=== PATIENT | female | born 1995 | race American Indian/Alaskan Native ===

== ENCOUNTER → 2023-01-11 16:06 | Outpatient (CLI) | payer OTHER, SELFPAY ==
[2023-01-11 16:26] LABS: Hematocrit 28.2 % (36-46); Hemoglobin 9.4 g/dL (12.0-16.0); Mean Corpuscular HGB Conc 33.3 % (30-36); Mean Corpuscular Hemoglobin 26.1 PG (26-34); Mean Corpuscular Volume 78.4 fL (80-100); Platelet Count 304 X10^3/uL (150-400); Red Cell Distribution Width 16.3 % (11.6-14.8); White Blood Cell Count 9.7 X10^3/uL (4.5-11.0)
== END ==
PROVIDERS: Referring Provider Student in an Organized Health Care Education/Training Program; Visit Provider Student in an Organized Health Care Education/Training Program
DX: O99.013 Anemia complicating pregnancy, third trimester (principal)
CPT/HCPCS: 85027

== ENCOUNTER → 2023-01-17 13:22 | Outpatient (CLI) | payer OTHER, SELFPAY ==
[2023-01-18 11:26] LABS: Strep Grp B PCR POS for Grp B Strep
== END ==
PROVIDERS: Visit Provider Student in an Organized Health Care Education/Training Program
DX: Z34.83 Encounter for supervision of other normal pregnancy, third trimester (principal)
CPT/HCPCS: 87653

== ENCOUNTER 2023-02-06 05:42 | Inpatient (IN) | payer OTHER, SELFPAY ==
[2023-02-06] VITALS (8 sets, daily range): BP systolic 107–115; BP diastolic 56–74; PULSE 77–93; RESP 11–17; TEMP 36.2–37.1; O2SAT 97–99
[2023-02-06 06:40] LABS: Basophils Absolute Auto 0 /uL (0-100); Basophils Percent Auto 0.5 % (0-2); Eosinophils Absolute Auto 100 /uL (0-450); Eosinophils Percent Auto 0.6 % (2-4); Hematocrit 30.1 % (36-46); Hemoglobin 10.1 g/dL (12.0-16.0); Lymphocytes Absolute Auto 2300 /uL (1100-4500); Lymphocytes Percent Auto 25.2 % (25-40); Mean Corpuscular HGB Conc 33.4 % (30-36); Mean Corpuscular Hemoglobin 27.2 PG (26-34); Mean Corpuscular Volume 81.6 fL (80-100); Monocytes Absolute Auto 700 /uL (0-900); Monocytes Percent Auto 8.2 % (3-14); Neutrophils Absolute Auto 6000 /uL (1500-7000); Neutrophils Percent Auto 65.5 % (50-75); Platelet Count 238 X10^3/uL (150-400); Red Blood Cell Count 3.69 X10^6/uL (4.0-5.2); Red Cell Distribution Width 25.9 % (11.6-14.8); White Blood Cell Count 9.2 X10^3/uL (4.5-11.0)
[2023-02-06 06:42] LABS: Add Manual Diff / Slide Review SLIDE REVIEW
[2023-02-06 07:15] LABS: Anisocytosis 2+; Microcytosis 1+
--- NOTE | 2023-02-06 07:28 | P.HPOB_ITS ---
OB HPI Date/Time Date of admission: 02/06/23 Date Patient Seen: 02/06/23 Time Patient Seen: 07:28 History of Present Condition Chief complaint: Primary : 4 Para: 2 Estimated Date of Delivery: 02/12/23 Estimated Gestational Age (weeks): 39+1 Narrative: Isabela Vila is a 27 year old female at 39+1wks here for planned primary due to hx of shoulder dystocia. History of Present care: good care Dating criteria: LMP confirmed by 1st trimester US Ultrasounds: normal 1st trimester US and normal mid trimester US Obstetrical complications: none Medical complications: none Narrative: OB Problem List Late transfer, records from previous [facility] requested urgently--> received and reviewed JAW Severe shoulder dystocia 2nd delivery (30-60sec, resolved with Natacha/posterior arm), would like to discuss planned C/S--> scheduled for 02/06 History of macrosomia (both 9+ lb without GDM) Michael Anemia--> H/H 9.4/28.2; s/p iron infusions 10.1/30.1 on admission GBS positive Preadmission Labs Blood type: O (+) positive -: Antibody screen: negative, Cystic fibrosis screen: negative, GBS status: negative, HBsAG: negative, HIV: negative, HSV 1: unknown, HSV 2: unknown and RPR/VDLR: negative -: Chlamydia screen: not detected and Gonorrhea screen: not detected -: Rubella: immune and Varicella: immune HCT: 28.6 HCAB: negative PAP: Normal Cell-free DNA: low risk, XY 1 hr GTT: 82 Evaluation Evaluation Baseline heart rate: 130 Variability: Moderate (11-25) monitor accelerations: Present Monitor Decelerations: Absent Contraction Frequency (minutes): 0 Category of Tracing: Reactive PFSH Medical History Shoulder dystocia during labor and delivery Surgical History No pertinent past surgical history Family History (Updated 02/01/23 @ 14:51 by Luciana Hill) Mother Al's thyroiditis Grandmother Hypertension Grandfather Heart disease Stroke Grandfather Esophageal cancer Grandmother Liver failure Alcoholism Sister Seizure in pediatric patient Social History marital status: number of children: 3 household members: spouse and children lives independently: Yes caregiver/support person: Yes housing: house pets and animals: Yes (1 dog) education level: college occupational status: unemployed current occupational exposures/hazards: No special elayne needs: No travel history: recent seatbelt use: always helmet use: No water heater temp set < 120 deg: Yes working smoke detector in home: Yes fire extinguisher in home: Yes carbon monox detector in home: Yes firearms in home: No do you feel safe at home: Yes Smoking Status: Never smoker second hand exposure: No alcohol intake: former substance use type: does not use during the past year weight has: remained stable well-balanced diet: about half the time daily servings fruits/ve-4 caffeine: Yes (~1 cup coffee/day) Type(s) of exercise: walking Meds Home Medications and Allergies Home Medications Medication Instructions Recorded Confirmed Type ascorbic acid (vitamin C) 500 mg 250 mg PO DAILY 01/09/23 02/06/23 History tablet ferrous sulfate 140 mg (45 mg 140 mg PO DAILY 01/09/23 02/06/23 History iron) tablet,extended release Allergies Allergy/AdvReac Type Severity Reaction Status Date / Time No Known Drug Allergies Allergy Verified 02/06/23 06:39 Review of Systems Review of Systems ROS: Yes All systems reviewed with the patient and are negative except as otherwise documented OB Exam Vital signs Blood Pressure: 107/68 Pulse Rate: 93 Temperature: 98.8 F HENMT Head: normal to inspection Resp Effort & Inspection: normal respiratory effort and able to speak in complete sentences Cardio Rate: regular rate Rhythm: regular rhythm Extremities Lower extremity: Yes normal to inspection GI Other: gravid, nontender, nondistended Objective Labs 02/06/23 06:16 Labs: Laboratory Results - last 24 hr 02/06/23 06:16 WBC 9.2 RBC 3.69 L Hgb 10.1 L Hct 30.1 L MCV 81.6 MCH 27.2 MCHC 33.4 RDW 25.9 H Plt Count 238 Neut % (Auto) 65.5 Lymph % (Auto) 25.2 [place] % (Auto) 8.2 Eos % (Auto) 0.6 L Baso % (Auto) 0.5 Neut # (Auto) 6000 Lymph # (Auto) 2300 [place] # (Auto) 700 Eos # (Auto) 100 Baso # (Auto) 0 RBC Morphology See below Anisocytosis 2+ H Microcytosis 1+ H Assessment and Plan Assessment and Plan Assessment and Plan narrative: 27yo at 39+1wks admitted for planned primary . -CBC, T&S on admission -NST on admission -plan for neuraxial anesthesia -GBS pos, covered by preop Ancef -PPH risk low -VTE risk low, SCDs for ppx -move to OR for delivery once all teams ready counseling: It was explained to the patient that a section is a surgery to deliver the baby through an incision in the abdominal wall and uterus.? All procedures can be associated with risk and unforeseen complications, which can be immediate or delayed.? Risks and complications of section include, but are not limited to:? infection of the uterus, pelvic organs, or skin; inadvertent injury to internal organs such as the bowel, bladder, or possibly even the baby; blood loss, transfusion, and/or life-threatening hemorrhage requiring hysterectomy; blood clots in the legs, pelvic organs, or lungs; adverse reaction to medications or anesthesia during surgery; development of placenta accreta spectrum in a subsequent ; and increased risk of section in a subsequent . Time Spent with Patient Total time spent with greater than 50% in coordination of care (as documented) at patient's floor/unit and/or counseling patient:: less than 15 minutes
[2023-02-06] MEDS: CITRIC ACID/SODIUM CITRATE 15 ML SOLUTION 30 ML PO (07:43)
[2023-02-06] MEDS: CEFAZOLIN 2 GM/100 ML PREMIX 100 ML IV (07:50)
--- NOTE | 2023-02-06 08:20 | SUR.OPER ---
Supine on padded OR bed, head on pillow, arms secured on padded arm boards at <90 degrees abduction, legs uncrossed, safety belt at thigh, tape over blanket over lower legs.
--- NOTE | 2023-02-06 09:02 | PM.OBCS.1 ---
Operative Date/Time/Diagnoses Date of procedure: 02/06/23 Time of procedure: 08:00 Pre-op diagnosis: 1. Johnson intrauterine gestation at 39+1 weeks 2. History of shoulder dystocia 3. Anemia of Post-op diagnosis: same ( hemorrhage by QBL) Procedure & Clinicians Procedure: Primary low transverse section Same procedure as scheduled: Yes Indications: 27yo at 39+1 weeks EGA admitted for planned primary due to history of shoulder dystocia. Surgeon: Isabela Schumacher Station Master: Nestor Galvan Anesthesia Type: Spinal Operative Notes Findings: Normal-appearing uterus and bilateral fallopian tubes and ovaries. Clear fluid noted with AROM. Delivery productive of a viable male in cephalic presentation with APGARS 8/9 and weighing 3868g. Closure Type: primary Specimen(s): cord blood Intraoperative meds administered: Duramorph and Ketorolac Applied: Catheter Estimated Blood Loss (mL): 900 (1000cc by QBL) Blood products transfused: none Procedure in detail: The risks, benefits, indications and alternatives of the procedure were reviewed with the patient and informed consent was obtained. The patient was taken to the operating room where spinal anesthesia was obtained without difficulty and was found to be adequate. She was then prepped and draped in the normal, sterile fashion in the dorsal supine position with a leftward tilt. A Pfannenstiel skin incision was then made with the scalpel and carried through to the underlying layer of fascia. The fascia was incised in the midline and the incision extended laterally with the Dawkins scissors. The superior aspect of the incision was grasped, tented up with Mahogany clamps and the rectus muscles were dissected off bluntly, aided with Dawkins scissors. The rectus muscles were then at the midline. The peritoneum was identified, and entered digitally. The peritoneal incision was then extended horizontally, superiorly and inferiorly, with good visualization of the bladder. The bladder blade was then inserted. The lower uterine segment was incised in a transverse fashion with the scalpel. The uterine incision was then extended manually in a cephalad/caudad direction. The amniotic sac was artificially ruptured, productive of clear fluid. The bladder blade was then removed. The ?s head delivered atraumatically through the hysterotomy without difficulty, followed by the body.? The cord was doubly clamped and cut after a 60sec delay with the infant handed off to the waiting pediatrics team. The placenta was then removed spontaneously with gentle traction on the umbilical cord. The uterus was then left in-situ and cleared of all clots and debris. Arterial bleeding was noted at the right side of the hysterotomy, which was clamped with Ring forceps. The uterine incision was repaired with 0-vicryl in a running, locked fashion. A figure of eight suture was placed along the hysterotomy, with excellent hemostasis achieved. ? The paracolic gutters were cleared of all clot and debris. The fascia was reapproximated with 0-vicryl in a running fashion. The subcutaneous layer was closed with 3-0 vicryl in simple, interrupted sutures. The skin was closed with 4-0 monocryl in a subcuticular fashion. The incision was then dressed with steri-strips and a pressure dressing was applied. At the completion of the case, a Crede maneuver was performed with good uterine tone and minimal vaginal bleeding noted.? The patient tolerated the procedure well. Sponge, lap and needle counts were correct x3. The patient was taken to the recovery room in stable condition. Complications: other ( hemorrhage due to intraoperative bleeding) Post-operative Condition: stable Disposition: PACU Aftercare: routine postop
[2023-02-06 12:33] LABS: Hematocrit 27.5 % (36-46); Hemoglobin 8.9 g/dL (12.0-16.0)
[2023-02-06] MEDS: KETOROLAC 30 MG/ML VIAL IV ×2 (14:43→20:39)
[2023-02-06] MEDS: diphenhydrAMINE 50 MG/ML VIAL 25 MG IV (14:44)
[2023-02-06] MEDS: ACETAMINOPHEN 325 MG TABLET 650 MG PO (20:39)
[2023-02-07] MEDS: KETOROLAC 30 MG/ML VIAL IV (02:32)
[2023-02-07] MEDS: ACETAMINOPHEN 325 MG TABLET 650 MG PO ×3 (02:33→15:44)
[2023-02-07] MEDS: PRENATAL VIT,CALC/IRON/FOLIC 1 TABLET 1 TAB PO (08:48)
[2023-02-07] MEDS: FERROUS SULFATE 325 MG TABLET PO (08:48)
[2023-02-07] MEDS: IBUPROFEN 600 MG TABLET PO ×2 (08:49→15:43)
[2023-02-07] MEDS: DOCUSATE 100 MG CAPSULE PO (08:49)
--- NOTE | 2023-02-07 14:59 | PM.OBDS.1 ---
Discharge Providers Provider Date of admission: 02/06/23 05:42 Discharge Date: 02/07/23 Primary care physician: Janeth Vigil PA-C Consults: 02/06/23 09:29 Consult to Hiv Cts Specialist Routine Comment: Discharge provider: Radha Alex DO Summary Hospital Course Date Patient Seen: 02/07/23 Time Patient Seen: 14:00 Diagnoses: care, section Anemia, expected post operative Hospital Course: 27yo admitted on 02/06/23 at 39.1w for scheduled primary section due to history of shoulder dystocia. See uncomplicated operative report for procedures. She is recovering appropriately. Appropriate lochia. Ambulating. Voiding. Tolerating regular diet. going well. Post operative hgb 8.9 (9.4). She had received iron infusions antepartum for anemia. IV iron given POD#1. POD#1 she continued to feel well and would like to go home. Reviewed and postoperative care, all questions answered. Peripartum Data Infant Delivery Method: Section Procedures: Primary section complications: none Discharge Diagnosis (1) care following delivery: Start Date: 02/06/23 Status: Acute (2) Acute postoperative anemia due to expected blood loss: Start Date: 02/06/23 Status: Acute (3) History of shoulder dystocia in prior , currently in third trimester: Start Date: 02/06/23 Status: Acute Status at Discharge Cognitive/behavioral status at discharge: oriented and calm Functional status at discharge: independent ambulation Time Spent with Patient Time attestation: Total time spent providing and/or coordinating discharge services: Time spent: Greater than 30 minutes Specific discharge activities: Increase activity as tolerated, pelvic rest, may shower, keep incision clean and dry Objective Labs 02/06/23 11:58 Exam Vital Signs (past 8 hours): Oxygen Delivery Method Room Air Const General: cooperative, healthy appearing and comfortable Orientation: alert, awake and oriented x3 Resp Effort & Inspection: normal respiratory effort Cardio Rate: regular rate GI Other: Soft, appropriately tender, incision c/d/i Skin General: no rashes or lesions noted Neuro General: patient alert, patient awake and patient oriented x3 Extrem General: normal to inspection Psych Appearance: grossly normal Discharge Plan Discharge Plan Patient Disposition: Home Discharge orders & Medications Prescriptions: New acetaminophen 325 mg Tablet 650 mg PO Q6H MDD 3g PRN (Reason: fever or pain) Qty: 90 1RF docusate sodium 100 mg Capsule 100 mg PO DAILY PRN (Reason: constipation) Qty: 30 1RF ibuprofen 600 mg Tablet 600 mg PO Q6H PRN (Reason: fever or pain) Qty: 90 1RF oxycodone 5 mg Tablet 5 mg PO Q6H PRN (Reason: Pain, Moderate (4-6)) Qty: 10 0RF Prenatabs Rx 29 mg iron- 1 mg Tablet 1 tab PO DAILY Qty: 90 1RF Discontinued ferrous sulfate 140 mg (45 mg iron) tablet extended release 140 mg PO DAILY ascorbic acid (vitamin C) 500 mg tablet 250 mg PO DAILY Patient Comments: with iron Medication counseling provided by Pharmacist: No Follow up/Referrals: Radha Alex DO [Physician] - 1 Week (Follow up 1-2w with ) Janeth Vigil PA-C [Primary Care Provider] - Activity Restrictions/Additional Instructions: Pelvic rest until bleeding stop, ~6w May shower No lifting greater 20lbs Diet/Activity/Treatments Diet: Regular Diet comment: Regular Activity: Increase activity as tolerated, pelvic rest Skin/Wound/Dressing Care Report to your healthcare provider any signs of infection, such as:: chills, fever, night sweats, increased pain, unusual drainage and unusual redness Dressing: Dressing removed, steri strips in place Visit Report/Discharge Packet Stand Alone Forms: Patient Portal/API Discharge Data Primary Care Provider: Janeth Vigil
[2023-02-07] MEDS: IRON SUCROSE 200 MG in SODIUM CHLORIDE 0.9% 100 ML 220 MG IV (16:00)
[2023-02-07] MEDS: MEASLES,MUMPS,RUBELLA VACC/PF 0.5 ML VIAL SUBCUT (16:46)
== END 2023-02-07 17:58 | disposition home or self-care (01) | DRG 787 ==
PROVIDERS: Admitting Provider Student in an Organized Health Care Education/Training Program; PCP Physician Assistant; Referring Provider Student in an Organized Health Care Education/Training Program; Visit Provider Student in an Organized Health Care Education/Training Program
PROC: 10D00Z1 Extraction of Products of Conception, Low, Open Approach (ICD-10-PCS; CPT 59514; principal; 2023-02-06 07:45)
DX: O34.211 Maternal care for low transverse scar from previous cesarean delivery (principal); D62 Acute posthemorrhagic anemia; Z3A.39 39 weeks gestation of pregnancy; Z37.0 Single live birth; O90.81 Anemia of the puerperium; O99.824 Streptococcus B carrier state complicating childbirth
CPT/HCPCS: 36415; 59050; 59514; 59515; 85014; 85018; 85025; 86850; 86900; 86901; J0690; J1100; J1200; J1756; J1885; J2274; J2405

== ENCOUNTER 2023-03-17 16:07 | Emergency (ER) | payer OTHER, SELFPAY ==
[2023-03-17] VITALS (16 sets, daily range): BP systolic 102–140; BP diastolic 58–75; PULSE 46–82; RESP 15–24; TEMP 36.2–36.9; O2SAT 92–99; BMI 29.7
--- NOTE | 2023-03-17 16:28 | DI.RAD.S_ITS ---
PROCEDURE: XR CHEST 1V INDICATIONS: Chest pain TECHNIQUE: One view of the chest was acquired. COMPARISON: None. FINDINGS: Surgical changes and devices: None. Lungs and pleura: Lungs are clear. No pleural effusions or pneumothorax. Mediastinum: Mediastinal contours appear normal. Heart size is normal. Bones and chest wall: No suspicious bony lesions. Overlying soft tissues appear unremarkable. IMPRESSION: No acute cardiopulmonary abnormality is seen. Dictated by: Laron Bassett M.D. on 03/17/2023 at 16:04 Approved by: Laron Bassett M.D. on 03/17/2023 at 16:04
--- NOTE | 2023-03-17 16:44 | ED.CHESTPAIN ---
HPI - Chest Pain General Chief Complaint: Chest Pain Stated Complaint: C-sec02/06/chest pain/chills/V/back pain/ Time Seen by Provider: 03/17/23 16:26 Source: patient Mode of arrival: Ambulatory Limitations: no limitations History of Present Illness HPI narrative: Patient is a 27-year-old female. Approximately 3 weeks ago had a . Is . Over the past 4-5 days she is developed occasional episodes of right-sided mid back discomfort. There has been periods of time where she is not had any symptoms. Subjective fevers at home. No nausea or vomiting. No urinary symptoms. No vaginal bleeding. Has not tried anything for her symptoms prior to arrival. Related Data Previous Rx's Medication Instructions Recorded acetaminophen 325 mg tablet 650 mg (2 x 325 mg) PO Q6H PRN 02/07/23 fever or pain #90 tabs docusate sodium 100 mg capsule 100 mg PO DAILY PRN constipation 02/07/23 #30 caps ibuprofen 600 mg tablet 600 mg PO Q6H PRN fever or pain 02/07/23 #90 tabs oxycodone 5 mg tablet 5 mg PO Q6H PRN Pain, Moderate 02/07/23 (4-6) #10 tabs oxycodone 5 mg tablet 5 mg PO Q6H PRN pain #12 tabs 02/07/23 vitamin 1 tab PO DAILY #90 tabs 02/07/23 no.76-iron,carbonyl 29 mg iron-folic acid 1 mg tablet (Prenatabs Rx) Allergies Allergy/AdvReac Type Severity Reaction Status Date / Time No Known Drug Allergies Allergy Verified 03/17/23 16:19 Review of Systems Constitutional Constitutional: Reports system reviewed and no additional complaints, except as documented Cardiovascular Cardiovascular: Reports system reviewed and no additional complaints, except as documented Respiratory Respiratory: Reports system reviewed and no additional complaints, except as documented Gastrointestinal Gastrointestinal: Reports system reviewed and no additional complaints, except as documented Integumentary/Breasts Skin/Breast: Reports system reviewed and no additional complaints, except as documented Neurologic Neurologic: Reports system reviewed and no additional complaints, except as documented Hematologic/Lymphatic On Anticoagulants: No Patient History Medical History Anemia affecting in third trimester (~2016) Encounter for supervision of other normal , third trimester Shoulder dystocia during labor and delivery Surgical History No pertinent past surgical history Family History (Updated 02/01/23 @ 14:51 by Luciana Hill) Mother Al's thyroiditis Grandmother Hypertension Grandfather Heart disease Stroke Grandfather Esophageal cancer Grandmother Liver failure Alcoholism Sister Seizure in pediatric patient Social History marital status: number of children: 3 household members: spouse and children lives independently: Yes caregiver/support person: Yes housing: house pets and animals: Yes (1 dog) education level: college occupational status: unemployed current occupational exposures/hazards: No special elayne needs: No travel history: recent seatbelt use: always helmet use: No water heater temp set < 120 deg: Yes working smoke detector in home: Yes fire extinguisher in home: Yes carbon monox detector in home: Yes firearms in home: No do you feel safe at home: Yes Smoking Status: Never smoker second hand exposure: No alcohol intake: former substance use type: does not use during the past year weight has: remained stable well-balanced diet: about half the time daily servings fruits/ve-4 caffeine: Yes (~1 cup coffee/day) Type(s) of exercise: walking Smoking Status: Never smoker Substance Use Type: does not use Exam Initial Vital Signs Initial Vital Signs: Vital Signs Temperature 97.1 F L 03/17/23 16:19 Pulse Rate 82 03/17/23 16:19 Respiratory Rate 18 03/17/23 16:19 Blood Pressure 125/58 L 03/17/23 16:19 Pulse Oximetry 98 03/17/23 16:19 Oxygen Delivery Method Room Air 03/17/23 16:19 HENMT Head: normal to inspection and normocephalic Resp Effort & Inspection: normal respiratory effort Auscultation: clear to auscultation bilaterally Cardio Rate: regular rate Rhythm: regular rhythm GI Inspection: normal to inspection and non-distended Palpation: soft, No firm and No tender Back/Spine/Pelvis Back: CVA tenderness Skin General: no rashes or lesions noted Neuro General: patient alert, patient awake and moves all extremities Extrem General: capillary refill normal Course Orders Ordered: ED Orders 03/17/23 16:27 Urinalysis and Microscopic Stat 03/17/23 16:28 XR chest 1V Stat 03/17/23 16:33 Complete Blood Count AUTO DIFF Stat Comprehensive Metabolic Panel Stat Lipase Stat Test Serum,Qual Stat 03/17/23 16:41 EKG-12 Lead Stat 03/17/23 17:18 US abdomen limited Stat Discontinued Medications Sodium Chloride (Normal Saline 0.9%) 1,000 mls @ 1,000 mls/hr IV BOLUS ONE Stop: 03/17/23 17:26 Last Infusion: 03/17/23 17:49 Dose: Infused Documented By: Admin: 03/17/23 16:49 Dose: 1,000 mls/hr Documented By: MEGAN Ondansetron HCl (Ondansetron 4 Mg/2 Ml Inj) 4 mg IV NOW ONE Stop: 03/17/23 16:28 Last Admin: 03/17/23 16:49 Dose: 4 mg Documented By: MEGAN Vital Signs Vital signs: Vital Signs - 8 hr 03/17/23 16:19 Temperature 97.1 F L Pulse Rate 82 Respiratory Rate 18 Blood Pressure 125/58 L Pulse Oximetry 98 Oxygen Delivery Method Room Air MDM - Chest Pain Lab Data Attestation: I reviewed the patient's lab results. 03/17/23 16:33 03/17/23 16:33 Labs: Lab Results 03/17/23 Range/Units 16:33 WBC 17.6 H (4.5-11.0) X10^3/uL RBC 4.51 (4.0-5.2) X10^6/uL Hgb 12.4 (12.0-16.0) g/dL Hct 37.4 (36-46) % MCV 82.9 (80-100) fL MCH 27.5 (26-34) PG MCHC 33.2 (30-36) % RDW 21.4 H (11.6-14.8) % Plt Count 337 (150-400) X10^3/uL Neut % (Auto) 81.0 H (50-75) % Lymph % (Auto) 13.5 L (25-40) % [place] % (Auto) 4.6 (3-14) % Eos % (Auto) 0.6 L (2-4) % Baso % (Auto) 0.3 (0-2) % Neut # (Auto) 03629 H (3131-3753) /uL Lymph # (Auto) 2400 (8185-4894) /uL [place] # (Auto) 800 (0-900) /uL Eos # (Auto) 100 (0-450) /uL Baso # (Auto) 0 (0-100) /uL RBC Morphology See below Anisocytosis 1+ H Sodium 138 (137-145) mmol/L Potassium 4.1 (3.4-5.1) mmol/L Chloride 102 (98-107) mmol/L Carbon Dioxide 28 (22-32) mmol/L BUN 14 (7-17) mg/dL Creatinine 0.58 (0.52-1.04) mg/dL Estimated GFR > 60 (>60) mL/min BUN/Creatinine Ratio 24.1 H (6-22) Glucose 94 (70-100) mg/dL Calcium 9.7 (8.4-10.2) mg/dL Total Bilirubin 0.7 (0.2-1.3) mg/dL AST 109 H (14-36) IU/L ALT 52 H (<35) IU/L Alkaline Phosphatase 203 H (38-126) U/L Total Protein 7.7 (6.3-8.2) g/dL Albumin 4.4 (3.5-5.0) g/dL Globulin 3.3 (1.7-4.1) g/dL Albumin/Globulin Ratio 1.3 (1.0-2.8) Lipase 71 (23-300) U/L Serum , Qual Negative (Negative) MDM Narrative Medical decision making narrative: Patient has midline and paraspinal thoracolumbar tenderness. Somewhat worse with palpation specifically on the right. Afebrile. No abdominal tenderness. She does have a leukocytosis. Elevation in her LFTs. Considered epidural hematoma/abscess. UTI, pyelo, plan will be to start with the right upper quadrant ultrasound to evaluate for gallbladder pathology. Care turned over to Dr. Schroeder to follow-up and disposition. Discharge Plan Departure Prescriptions: No Action oxycodone 5 mg tablet 5 mg PO Q6H PRN (Reason: pain) Qty: 12 0RF acetaminophen 325 mg Tablet 650 mg PO Q6H MDD 3g PRN (Reason: fever or pain) Qty: 90 1RF docusate sodium 100 mg Capsule 100 mg PO DAILY PRN (Reason: constipation) Qty: 30 1RF ibuprofen 600 mg Tablet 600 mg PO Q6H PRN (Reason: fever or pain) Qty: 90 1RF oxycodone 5 mg Tablet 5 mg PO Q6H PRN (Reason: Pain, Moderate (4-6)) Qty: 10 0RF Prenatabs Rx 29 mg iron- 1 mg Tablet 1 tab PO DAILY Qty: 90 1RF Referrals: Janeth Vigil PA-C [Primary Care Provider] -
[2023-03-17 16:48] LABS: Add Manual Diff / Slide Review NO; Basophils Absolute Auto 0 /uL (0-100); Basophils Percent Auto 0.3 % (0-2); Eosinophils Absolute Auto 100 /uL (0-450); Eosinophils Percent Auto 0.6 % (2-4); Hematocrit 37.4 % (36-46); Hemoglobin 12.4 g/dL (12.0-16.0); Lymphocytes Absolute Auto 2400 /uL (1100-4500); Lymphocytes Percent Auto 13.5 % (25-40); Mean Corpuscular HGB Conc 33.2 % (30-36); Mean Corpuscular Hemoglobin 27.5 PG (26-34); Mean Corpuscular Volume 82.9 fL (80-100); Monocytes Absolute Auto 800 /uL (0-900); Monocytes Percent Auto 4.6 % (3-14); Neutrophils Absolute Auto 14300 /uL (1500-7000); Platelet Count 337 X10^3/uL (150-400); Red Blood Cell Count 4.51 X10^6/uL (4.0-5.2); Red Cell Distribution Width 21.4 % (11.6-14.8); White Blood Cell Count 17.6 X10^3/uL (4.5-11.0)
[2023-03-17] MEDS: ONDANSETRON 4 MG/2 ML INJ IV (16:49)
[2023-03-17] MEDS: SODIUM CHLORIDE 0.9% 1,000 ML 1000 ML IV (16:49)
[2023-03-17 16:54] LABS: Alanine Aminotransferase 52 IU/L (<35); Albumin 4.4 g/dL (3.5-5.0); Albumin Globulin Ratio 1.3 (1.0-2.8); Alkaline Phosphatase 203 U/L (38-126); Aspartate Aminotransferase 109 IU/L (14-36); BUN Creatinine Ratio 24.1 (6-22); Bilirubin Total 0.7 mg/dL (0.2-1.3); Blood Urea Nitrogen 14 mg/dL (7-17); Calcium 9.7 mg/dL (8.4-10.2); Carbon Dioxide 28 mmol/L (22-32); Chloride 102 mmol/L (98-107); Estimated Glomerular Filt Rate > 60 mL/min (>60); Globulin 3.3 g/dL (1.7-4.1); Glucose 94 mg/dL (70-100); HEMOLYSIS < 15 (0-50); Lipase 71 U/L (23-300); Potassium 4.1 mmol/L (3.4-5.1); Sodium 138 mmol/L (137-145); Total Protein 7.7 g/dL (6.3-8.2)
[2023-03-17 17:05] LABS: Pregnancy Test Serum,Qual Negative (Negative)
[2023-03-17 17:10] LABS: Anisocytosis 1+
--- NOTE | 2023-03-17 17:18 | DI.US.S_ITS ---
PROCEDURE: US ABDOMEN LIMITED INDICATIONS: RUQ US eval for GB pathology TECHNIQUE: Real-time focused scanning was performed of the abdomen, with image documentation. COMPARISON: None. FINDINGS: Liver is normal in size and echogenicity. Gallbladder contains numerous tiny mobile calculi. No gallbladder wall thickening or pericholecystic fluid. Sonographic Hanson sign is negative. No intrahepatic biliary ductal dilatation. Common bile duct measures 6 mm in diameter, which is at the upper limits of normal. Visualized pancreas is unremarkable. IMPRESSION: Cholelithiasis without signs of acute cholecystitis. Approved by: Neno Pyle M.D. on 03/17/2023 at 20:21
[2023-03-17 18:13] LABS: Appearance Urine UA CLEAR; Bilirubin Urine UA NEGATIVE (NEGATIVE); Color Urine UA YELLOW; Glucose Urine UA NEGATIVE (Negative); Ketones Urine UA NEGATIVE (NEGATIVE); Leukocyte Esterase Urine UA NEGATIVE (NEGATIVE); Nitrite Urine UA NEGATIVE (Negative); Occult Blood Urine UA NEGATIVE (Negative); Protein Urine UA NEGATIVE (Negative); Specific Gravity Urine UA 1.015 (1.000-1.035)
[2023-03-17 18:16] LABS: pH Urine UA 6.5 (4.5-8.0)
[2023-03-17 18:22] LABS: Bacteria Urine None Seen; Culture Indicated Urine Cult Not Indicated; RBC Urine None Seen (0-5/HPF); Squamous Epithelial Cell Urine None Seen (0-5/HPF); WBC Urine None Seen (0-5/HPF)
[2023-03-17] MEDS: KETOROLAC 30 MG/ML VIAL IV (18:25)
[2023-03-17] MEDS: MORPHINE 4 MG/ML INJ IV (19:03)
== END 2023-03-17 22:08 | disposition home or self-care (01) ==
PROVIDERS: Emergency Medicine; Emergency Provider Emergency Medicine; PCP Physician Assistant
DX: M54.6 Pain in thoracic spine (principal); R07.9 Chest pain, unspecified
CPT/HCPCS: 36415; 71045; 76705; 80053; 81001; 81025; 83690; 84703; 85025; 93005; 96374; 96375; 99284; J1885; J2270; J2405

== ENCOUNTER 2023-03-20 05:50 | Emergency (ER) | payer OTHER, SELFPAY ==
[2023-03-20 05:59] VITALS: BP 128/74; PULSE 63; RESP 16; TEMP 36.8; O2SAT 97; BMI 29.7
--- NOTE | 2023-03-20 06:01 | DI.US.S_ITS ---
PROCEDURE: US ABDOMEN LIMITED INDICATIONS: RUQ abdominal TECHNIQUE: Real-time scanning was performed of the abdominal and retroperitoneal organs, with image documentation. COMPARISON: Merged With [facility], , US ABDOMEN LIMITED, 03/17/2023, 19:27. FINDINGS: Liver: Liver is mildly enlarged at 17.7 cm. The liver is normal echogenicity. Gallbladder: Small nonobstructing stones within the fundus. No gallbladder wall thickening or pericholecystic fluid. Biliary ducts: Intrahepatic bile ducts are non-dilated. The common bile duct is dilated at 8.8 mm. There is a 3.6 mm stone within the distal common bile duct. Normal is 6-7 mm or less in diameter, or 10 mm or less post-cholecystectomy. Pancreas: Visualized portions of the pancreas are sonographically normal. IMPRESSION: 1. Nonobstructing stones within the fundus of the gallbladder without gallbladder wall thickening or pericholecystic fluid. Sonographic Hanson sign is reported positive. 2. Dilated common bile duct up to 8.8 mm with a 3.6 mm stone within the distal common bile duct, consistent with choledocholithiasis. Dictated by: Virgil Canada M.D. on 03/20/2023 at 8:03 Approved by: Virgil Canada M.D. on 03/20/2023 at 8:06
--- NOTE | 2023-03-20 06:02 | ED.ABDPAIN ---
HPI - Abdominal Pain <Ofelia Garcia MD - Last Filed: 03/20/23 18:43> General Chief Complaint: Abdominal Pain Stated Complaint: gall stones here 2 days ago Time Seen by Provider: 03/20/23 05:53 History of Present Illness HPI narrative: 27-year-old female presents for persistent right upper quadrant abdominal pain. Associated nausea and dark urine. Patient was seen 2 days prior, she was diagnosed with gallstones, however there was no evidence of cholecystitis and patient was discharged home. Patient states that since that time her pain has only worsened and is now constant. She is also noticed generalized pruritis with a petichial rash over her back. Since pain persisted she decided to return for repeat evaluation to the emergency department. Related Data Previous Rx's Medication Instructions Recorded acetaminophen 325 mg tablet 650 mg (2 x 325 mg) PO Q6H PRN 02/07/23 fever or pain #90 tabs docusate sodium 100 mg capsule 100 mg PO DAILY PRN constipation 02/07/23 #30 caps ibuprofen 600 mg tablet 600 mg PO Q6H PRN fever or pain 02/07/23 #90 tabs oxycodone 5 mg tablet 5 mg PO Q6H PRN Pain, Moderate 02/07/23 (4-6) #10 tabs oxycodone 5 mg tablet 5 mg PO Q6H PRN pain #12 tabs 02/07/23 vitamin 1 tab PO DAILY #90 tabs 02/07/23 no.76-iron,carbonyl 29 mg iron-folic acid 1 mg tablet (Prenatabs Rx) oxycodone 5 mg tablet 5 mg PO Q6H PRN pain #10 tabs 03/17/23 Allergies Allergy/AdvReac Type Severity Reaction Status Date / Time No Known Drug Allergies Allergy Verified 03/17/23 16:19 Review of Systems <Ofelia Garcia MD - Last Filed: 03/20/23 18:43> Review of Systems Narrative: Negative except as noted above Patient History <Ofelia Garcia MD - Last Filed: 03/20/23 18:43> Medical History Anemia affecting in third trimester (~2016) Encounter for supervision of other normal , third trimester Shoulder dystocia during labor and delivery Surgical History No pertinent past surgical history Family History (Updated 02/01/23 @ 14:51 by Luciana Hill) Mother Al's thyroiditis Grandmother Hypertension Grandfather Heart disease Stroke Grandfather Esophageal cancer Grandmother Liver failure Alcoholism Sister Seizure in pediatric patient Social History marital status: number of children: 3 household members: spouse and children lives independently: Yes caregiver/support person: Yes housing: house pets and animals: Yes (1 dog) education level: college occupational status: unemployed current occupational exposures/hazards: No special elayne needs: No travel history: recent seatbelt use: always helmet use: No water heater temp set < 120 deg: Yes working smoke detector in home: Yes fire extinguisher in home: Yes carbon monox detector in home: Yes firearms in home: No do you feel safe at home: Yes Smoking Status: Never smoker second hand exposure: No alcohol intake: former substance use type: does not use during the past year weight has: remained stable well-balanced diet: about half the time daily servings fruits/ve-4 caffeine: Yes (~1 cup coffee/day) Type(s) of exercise: walking Smoking Status: Never smoker Substance Use Type: does not use Exam <Ofelia Garcia MD - Last Filed: 03/20/23 18:43> Initial Vital Signs Initial Vital Signs: Vital Signs Temperature 98.3 F 03/20/23 05:59 Pulse Rate 63 03/20/23 05:59 Respiratory Rate 16 03/20/23 05:59 Blood Pressure 128/74 03/20/23 05:59 Pulse Oximetry 97 03/20/23 05:59 Oxygen Delivery Method Room Air 03/20/23 05:59 Const: Awake, alert, no acute distress, nontoxic appearing Eyes: PERRL, EOMI, conjunctiva normal ENT: Atraumatic, dentition normal, mucous membranes moist Cardiac: regular rate, regular rhythm RESP: unlabored, clear bilaterally, no wheezing GI: Atraumatic, soft, RUQ tender to palpation, positive henderson's sign MSK: Atraumatic, full range of motion, pulses equal Skin: Warm, Dry, intact, petechial rash over upper and lower back Neuro: AO x3, CN II-XII grossly intact, moves all extremities Psych: affect normal, mood normal, not suicidal, not homicidal <Young Downing DO - Last Filed: 03/20/23 10:24> Initial Vital Signs Initial Vital Signs: Vital Signs Temperature 98.3 F 03/20/23 05:59 Pulse Rate 63 03/20/23 05:59 Respiratory Rate 16 03/20/23 05:59 Blood Pressure 128/74 03/20/23 05:59 Pulse Oximetry 97 03/20/23 05:59 Oxygen Delivery Method Room Air 03/20/23 05:59 Course <Ofelia Garcia MD - Last Filed: 03/20/23 18:43> Course Course Narrative: Persistent and worsening abdominal pain in patient with possible gallstones. Abdomen tender in RUQ. Will repeat labs/imaging. Orders Ordered: Discontinued Medications Sodium Chloride (Normal Saline 0.9%) 1,000 mls @ 1,000 mls/hr IV BOLUS ONE Stop: 03/20/23 07:14 Last Infusion: 03/20/23 09:31 Dose: Infused Documented By: AMQuinn Admin: 03/20/23 06:46 Dose: 1,000 mls/hr Documented By: VIDAL Lorazepam (Lorazepam 2 Mg/Ml Inj) 1 mg IV NOW ONE Stop: 03/20/23 09:15 Last Admin: 03/20/23 09:31 Dose: Not Given Documented By: RUCHI Morphine Sulfate (Morphine 4 Mg/Ml Inj) 4 mg IV NOW ONE Stop: 03/20/23 06:02 Last Admin: 03/20/23 06:15 Dose: 4 mg Documented By: VIDAL Ondansetron HCl (Ondansetron 4 Mg/2 Ml Inj) 4 mg IV NOW ONE Stop: 03/20/23 06:16 Last Admin: 03/20/23 06:46 Dose: 4 mg Documented By: VIDAL Reevaluation(s) Reevaluation #1: Leukocytosis is improved, however liver enzymes are markedly worse. certified control systems technician informs me that there is concern that there may be a retained stone in the common bile duct. Discussed case with on-call general surgeon Dr. Quintanilla, who stated that patient would likely need ERCP and recommended transfer. MRCP ordered in interim. Care of patient signed to Dr. Downing at 0700 Vital Signs Vital signs: Vital Signs - 8 hr 03/20/23 05:59 03/20/23 06:53 Temperature 98.3 F Pulse Rate 63 50 L Respiratory Rate 16 15 Blood Pressure 128/74 104/59 L Pulse Oximetry 97 99 Oxygen Delivery Method Room Air Room Air <Yonug Downing DO - Last Filed: 03/20/23 10:24> Orders Ordered: Discontinued Medications Sodium Chloride (Normal Saline 0.9%) 1,000 mls @ 1,000 mls/hr IV BOLUS ONE Stop: 03/20/23 07:14 Last Infusion: 03/20/23 09:31 Dose: Infused Documented By: Admin: 03/20/23 06:46 Dose: 1,000 mls/hr Documented By: BB Lorazepam (Lorazepam 2 Mg/Ml Inj) 1 mg IV NOW ONE Stop: 03/20/23 09:15 Last Admin: 03/20/23 09:31 Dose: Not Given Documented By: AMV Morphine Sulfate (Morphine 4 Mg/Ml Inj) 4 mg IV NOW ONE Stop: 03/20/23 06:02 Last Admin: 03/20/23 06:15 Dose: 4 mg Documented By: VIDAL Ondansetron HCl (Ondansetron 4 Mg/2 Ml Inj) 4 mg IV NOW ONE Stop: 03/20/23 06:16 Last Admin: 03/20/23 06:46 Dose: 4 mg Documented By: BB Vital Signs Vital signs: Vital Signs - 8 hr 03/20/23 05:59 03/20/23 06:53 Temperature 98.3 F Pulse Rate 63 50 L Respiratory Rate 16 15 Blood Pressure 128/74 104/59 L Pulse Oximetry 97 99 Oxygen Delivery Method Room Air Room Air MDM - Abdominal Pain <Ofelia Garcia MD - Last Filed: 03/20/23 18:43> Differential Diagnosis Differential diagnosis: Likely abdominal pain, pancreatitis and other (choledocholithiasis) Lab Data 03/20/23 06:15 03/20/23 06:15 Labs: Lab Results 03/20/23 03/20/23 Range/Units 06:15 06:50 WBC 8.1 (4.5-11.0) X10^3/uL RBC 4.17 (4.0-5.2) X10^6/uL Hgb 11.9 L (12.0-16.0) g/dL Hct 35.2 L (36-46) % MCV 84.3 (80-100) fL MCH 28.5 (26-34) PG MCHC 33.8 (30-36) % RDW 21.7 H (11.6-14.8) % Plt Count 315 (150-400) X10^3/uL Neut % (Auto) 66.5 (50-75) % Lymph % (Auto) 23.5 L (25-40) % [place] % (Auto) 8.8 (3-14) % Eos % (Auto) 0.7 L (2-4) % Baso % (Auto) 0.5 (0-2) % Neut # (Auto) 5400 (2011-4026) /uL Lymph # (Auto) 1900 (5495-1220) /uL [place] # (Auto) 700 (0-900) /uL Eos # (Auto) 100 (0-450) /uL Baso # (Auto) 0 (0-100) /uL RBC Morphology See below Anisocytosis 2+ H Microcytosis 2+ H Macrocytosis 1+ H Tear Drop Cells 1+ H Ovalocytes 1+ H [place] Cells 1+ H PT 15.1 H (9.4-12.5) SECONDS INR 1.3 (0.9-1.3) Sodium 137 (137-145) mmol/L Potassium 3.7 (3.4-5.1) mmol/L Chloride 104 (98-107) mmol/L Carbon Dioxide 25 (22-32) mmol/L BUN 9 (7-17) mg/dL Creatinine 0.56 (0.52-1.04) mg/dL Estimated GFR > 60 (>60) mL/min BUN/Creatinine Ratio 16.1 (6-22) Glucose 98 (70-100) mg/dL Calcium 9.1 (8.4-10.2) mg/dL Total Bilirubin 2.8 H (0.2-1.3) mg/dL AST 395 H (14-36) IU/L ALT 781 H (<35) IU/L Alkaline Phosphatase 397 H D (38-126) U/L Total Protein 7.1 (6.3-8.2) g/dL Albumin 3.9 (3.5-5.0) g/dL Globulin 3.2 (1.7-4.1) g/dL Albumin/Globulin Ratio 1.2 (1.0-2.8) Lipase 88 (23-300) U/L Point of care testing: Point of Care Testing Test Results Negative <Young Downing DO - Last Filed: 03/20/23 10:24> Lab Data Labs: Lab Results 03/20/23 03/20/23 Range/Units 06:15 06:50 WBC 8.1 (4.5-11.0) X10^3/uL RBC 4.17 (4.0-5.2) X10^6/uL Hgb 11.9 L (12.0-16.0) g/dL Hct 35.2 L (36-46) % MCV 84.3 (80-100) fL MCH 28.5 (26-34) PG MCHC 33.8 (30-36) % RDW 21.7 H (11.6-14.8) % Plt Count 315 (150-400) X10^3/uL Neut % (Auto) 66.5 (50-75) % Lymph % (Auto) 23.5 L (25-40) % [place] % (Auto) 8.8 (3-14) % Eos % (Auto) 0.7 L (2-4) % Baso % (Auto) 0.5 (0-2) % Neut # (Auto) 5400 (8137-2994) /uL Lymph # (Auto) 1900 (7976-9242) /uL [place] # (Auto) 700 (0-900) /uL Eos # (Auto) 100 (0-450) /uL Baso # (Auto) 0 (0-100) /uL RBC Morphology See below Anisocytosis 2+ H Microcytosis 2+ H Macrocytosis 1+ H Tear Drop Cells 1+ H Ovalocytes 1+ H [place] Cells 1+ H PT 15.1 H (9.4-12.5) SECONDS INR 1.3 (0.9-1.3) Sodium 137 (137-145) mmol/L Potassium 3.7 (3.4-5.1) mmol/L Chloride 104 (98-107) mmol/L Carbon Dioxide 25 (22-32) mmol/L BUN 9 (7-17) mg/dL Creatinine 0.56 (0.52-1.04) mg/dL Estimated GFR > 60 (>60) mL/min BUN/Creatinine Ratio 16.1 (6-22) Glucose 98 (70-100) mg/dL Calcium 9.1 (8.4-10.2) mg/dL Total Bilirubin 2.8 H (0.2-1.3) mg/dL AST 395 H (14-36) IU/L ALT 781 H (<35) IU/L Alkaline Phosphatase 397 H D (38-126) U/L Total Protein 7.1 (6.3-8.2) g/dL Albumin 3.9 (3.5-5.0) g/dL Globulin 3.2 (1.7-4.1) g/dL Albumin/Globulin Ratio 1.2 (1.0-2.8) Lipase 88 (23-300) U/L Point of care testing: Point of Care Testing Test Results Negative MDM Narrative Medical decision making narrative: [0700] (Chang) Patient received in sign out from [Jose]. I have reviewed the clinical course and performed an independent history and physical exam. Call to local Gen Surg regarding potential for CBD stone, recommend transfer for ERCP 0715 - call to [facility] to discuss with GI. MRCP ordered, opening at 1000. [facility] has no beds. Calls to [facility] etc. 0930 - GI at [facility] ([facility]) happy to accept, requests continued NPO, transfer, no need for MRCP. Call to hospitalist placed [27] year old patient presents with recurrence of right upper quadrant pain Multiple etiologies for patient's symptoms considered including, but not limited to: [] Gallbladder disease including cholecystitis versus choledocholithiasis versus pancreatitis versus other Prior Charts reviewed in our EMR Primary Historian: patient Labs reviewed and interpreted by myself: Rising LFTs, bilirubin now significant elevated Imaging reviewed: Ultrasound confirms stone in the distal common bile duct, no obvious cholecystitis. MRCP had been ordered but after consultation with GI we have agreed is no longer indicated Consultations:[facility] (GI at [facility]) see details above. Dr. Berhane prasad toa ccept patient to his service 27-year-old otherwise healthy female with right upper quadrant pain is found to have choledocholithiasis in the absence of an infectious process. She requires transportation to [facility] in order to receive higher level of care which includes GI consultation and likely ERCP which can not be provided our facility. Patient is aware of and agrees with the diagnosis and plan for transfer. She has been NPO to solids since 1700 last night Critical Care Time <Young Downing DO - Last Filed: 03/20/23 10:24> Critical Care Time Critical Care Time: Yes Total Critical Care Time: 30 Attestation: Critical Care Time [30] minutes: Critical care time is separate from other billable procedures. This critical care time includes consultation with family and other consulting doctors, review of records, and interpretation of data from labs, EKGs, imaging, etc. Discharge Plan Departure Patient Disposition: [facility] Clinical Impression: Choledocholithiasis Prescriptions: No Action oxycodone 5 mg tablet 5 mg PO Q6H PRN (Reason: pain) Qty: 12 0RF oxycodone 5 mg tablet 5 mg PO Q6H PRN (Reason: pain) Qty: 10 0RF acetaminophen 325 mg Tablet 650 mg PO Q6H MDD 3g PRN (Reason: fever or pain) Qty: 90 1RF docusate sodium 100 mg Capsule 100 mg PO DAILY PRN (Reason: constipation) Qty: 30 1RF ibuprofen 600 mg Tablet 600 mg PO Q6H PRN (Reason: fever or pain) Qty: 90 1RF oxycodone 5 mg Tablet 5 mg PO Q6H PRN (Reason: Pain, Moderate (4-6)) Qty: 10 0RF Prenatabs Rx 29 mg iron- 1 mg Tablet 1 tab PO DAILY Qty: 90 1RF Referrals: Janeth Vigil PA-C [Primary Care Provider] -
[2023-03-20] MEDS: MORPHINE 4 MG/ML INJ IV (06:15)
[2023-03-20 06:28] LABS: Add Manual Diff / Slide Review NO; Basophils Absolute Auto 0 /uL (0-100); Basophils Percent Auto 0.5 % (0-2); Eosinophils Absolute Auto 100 /uL (0-450); Eosinophils Percent Auto 0.7 % (2-4); Hematocrit 35.2 % (36-46); Hemoglobin 11.9 g/dL (12.0-16.0); Lymphocytes Absolute Auto 1900 /uL (1100-4500); Lymphocytes Percent Auto 23.5 % (25-40); Mean Corpuscular HGB Conc 33.8 % (30-36); Mean Corpuscular Hemoglobin 28.5 PG (26-34); Mean Corpuscular Volume 84.3 fL (80-100); Monocytes Absolute Auto 700 /uL (0-900); Monocytes Percent Auto 8.8 % (3-14); Neutrophils Absolute Auto 5400 /uL (1500-7000); Neutrophils Percent Auto 66.5 % (50-75); Platelet Count 315 X10^3/uL (150-400); Red Blood Cell Count 4.17 X10^6/uL (4.0-5.2); Red Cell Distribution Width 21.7 % (11.6-14.8); White Blood Cell Count 8.1 X10^3/uL (4.5-11.0)
[2023-03-20 06:37] LABS: Albumin 3.9 g/dL (3.5-5.0); Albumin Globulin Ratio 1.2 (1.0-2.8); Alkaline Phosphatase 397 U/L (38-126); Aspartate Aminotransferase 395 IU/L (14-36); BUN Creatinine Ratio 16.1 (6-22); Bilirubin Total 2.8 mg/dL (0.2-1.3); Blood Urea Nitrogen 9 mg/dL (7-17); Calcium 9.1 mg/dL (8.4-10.2); Carbon Dioxide 25 mmol/L (22-32); Chloride 104 mmol/L (98-107); Estimated Glomerular Filt Rate > 60 mL/min (>60); Globulin 3.2 g/dL (1.7-4.1); Glucose 98 mg/dL (70-100); HEMOLYSIS < 15 (0-50); Lipase 88 U/L (23-300); Potassium 3.7 mmol/L (3.4-5.1); Sodium 137 mmol/L (137-145); Total Protein 7.1 g/dL (6.3-8.2)
[2023-03-20 06:44] LABS: Anisocytosis 2+; Burr Cells 1+; Macrocytosis 1+; Microcytosis 2+; Ovalocytes 1+; Tear Drop Cells 1+
[2023-03-20 06:45] LABS: Alanine Aminotransferase 781 IU/L (<35)
[2023-03-20] MEDS: SODIUM CHLORIDE 0.9% 1,000 ML 1000 ML IV (06:46)
[2023-03-20] MEDS: ONDANSETRON 4 MG/2 ML INJ IV (06:46)
[2023-03-20 06:53] VITALS: BP 104/59; PULSE 50; RESP 15; O2SAT 99
[2023-03-20 07:03] LABS: INR 1.3 (0.9-1.3); Prothrombin Time 15.1 SECONDS (9.4-12.5)
[2023-03-20 10:26] VITALS: BP 119/63; PULSE 60; RESP 16; O2SAT 100
== END 2023-03-20 10:55 | disposition short-term general hospital (02) ==
PROVIDERS: Emergency Medicine; Emergency Provider Emergency Medicine; PCP Physician Assistant
DX: K80.50 Calculus of bile duct without cholangitis or cholecystitis without obstruction (principal)
CPT/HCPCS: 36415; 76705; 80053; 81025; 83690; 85025; 85610; 96361; 96374; 96375; 99284; J2270; J2405

== ENCOUNTER → 2024-10-05 07:28 | Outpatient (CLI) | payer BC, SELFPAY ==
--- NOTE | 2024-10-05 07:32 | DI.US.S_ITS ---
PROCEDURE: US FOLLICLE TRANSVAGINAL INDICATIONS: Procreative investigation and testing TECHNIQUE: Real-time scanning was performed of the pelvic organs, with image documentation. Additional endovaginal scanning was necessary due to incomplete visualization of the adnexal and endometrial structures by transabdominal scanning. COMPARISON: None. FINDINGS: Uterus: Uterus is anteverted and normal in size at 8.9 x 4.5 cm. The myometrium is homogeneous. The endometrium measures 4.1 mm combined thickness. Homogeneous appearance. Ovaries: The right ovary measures 2.9 x 1.5 x 2.0 cm, with a calculated ovarian volume of 4.7 cc. The left ovary measures 2.1 x 2.0 x 1.9 cm, with a calculated ovarian volume of 4.1 cc. The ovaries have a normal sonographic appearance. There are 20 subcentimeter left ovarian follicles, and 1 follicle measuring 1.0 x 0.5 x 0.9 centimeters. Fifteen subcentimeter right ovarian follicles. Other: No pathologic free abdominal or pelvic fluid. IMPRESSION: Twenty subcentimeter left ovarian follicles. One follicle measuring 1.0 x 0.5 x 0.9 centimeter. Fifteen subcentimeter right ovarian follicles. Homogeneous endometrium. We strive to produce accurate, complete, and clear reports of imaging services. To assist us in improving patient care, this report was composed using standard report templates and voice recognition software. Therefore, it may contain abnormal punctuation, insertions and/or omissions. Occasional wrong-word or sound-alike substitutions may occur. Though we review the report and make efforts to correct it, we do recommend that the report be read carefully in proper context to recognize any text inaccuracies. Dictated by: Laron Bassett M.D. on 10/05/2024 at 10:08 Approved by: Laron Bassett M.D. on 10/05/2024 at 10:12
== END ==
LOC: US 07:29
PROVIDERS: PCP Physician Assistant
DX: Z00.00 Encounter for general adult medical examination without abnormal findings (principal); Z11.9 Encounter for screening for infectious and parasitic diseases, unspecified; Z31.49 Encounter for other procreative investigation and testing
CPT/HCPCS: 76830

== ENCOUNTER → 2024-10-15 10:38 | Outpatient (CLI) | payer BC, SELFPAY ==
--- NOTE | 2024-10-15 10:40 | DI.US.S_ITS ---
PROCEDURE: US FOLLICLE TRANSVAGINAL INDICATIONS: FOLLICLE CHECK/COUNT ENDO THICKNESS/TYPE. TECHNIQUE: Real-time scanning was performed of the pelvic organs, with image documentation. Additional endovaginal scanning was necessary due to incomplete visualization of the adnexal and endometrial structures by transabdominal scanning. COMPARISON: [facility], , US FOLLICLE TRANSVAGINAL, 10/05/2024, 7:40. FINDINGS: Uterus: Uterus is retroverted and normal in size at 6.5 x 5.8 x 4.3 cm. The myometrium is homogeneous. The endometrium measures 5.9 mm combined thickness. No fibroids. Ovaries: The right ovary measures 2.7 x 1.6 x 1.5 cm, with a calculated ovarian volume of 3.4 cc. The left ovary measures 2.8 x 2.6 x 1.8 cm, with a calculated ovarian volume of 6.9 cc. The ovaries have a normal sonographic appearance. Greater than 12 follicles can be seen in each ovary. There are greater than or equal to 17 right ovarian follicles and greater than or equal to 13 left ovarian follicles. The largest right ovarian follicle is 0.7 x 0.6 x 0.5 cm. The largest left ovarian follicle is 0.8 x 0.6 x 0.6 cm. No adnexal masses are seen. Other: No pathologic free abdominal or pelvic fluid. Presumed dilated refluxing left gonadal vein with paraovarian varicosities. IMPRESSION: 1. Follicle study as described above. Greater than 12 follicles bilaterally. All follicles subcentimeter. 2. 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 Comment: In certain individuals with left gonadal vein reflux, there can be an associated syndrome of chronic pelvic venous congestion. Recommend clinical correlation. We strive to produce accurate, complete, and clear reports of imaging services. To assist us in improving patient care, this report was composed using standard report templates and voice recognition software. Therefore, it may contain abnormal punctuation, insertions and/or omissions. Occasional wrong-word or sound-alike substitutions may occur. Though we review the report and make efforts to correct it, we do recommend that the report be read carefully in proper context to recognize any text inaccuracies. Dictated by: Jose Baez M.D. on 10/16/2024 at 10:26 Approved by: Jose Baez M.D. on 10/16/2024 at 10:30
== END ==
PROVIDERS: PCP Physician Assistant; Referring Provider Obstetrics & Gynecology Reproductive Endocrinology; Visit Provider Obstetrics & Gynecology Reproductive Endocrinology
DX: Z00.00 Encounter for general adult medical examination without abnormal findings (principal); Z11.9 Encounter for screening for infectious and parasitic diseases, unspecified; Z31.49 Encounter for other procreative investigation and testing
CPT/HCPCS: 76830

== ENCOUNTER → 2024-10-21 09:34 | Outpatient (CLI) | payer BC, SELFPAY ==
--- NOTE | 2024-10-21 10:17 | DI.US.S_ITS ---
PROCEDURE: US FOLLICLE TRANSVAGINAL INDICATIONS: FOLLICLE CHECK/SIZE AND ENDO SIZE/APPEARANCE FOR SURROGATE TECHNIQUE: Real-time scanning was performed of the pelvic organs, with image documentation. Additional endovaginal scanning was necessary due to incomplete visualization of the adnexal and endometrial structures by transabdominal scanning. COMPARISON: [facility], , US FOLLICLE TRANSVAGINAL, 10/15/2024, 11:20. FINDINGS: Uterus: Uterus is anteverted and normal in size at 7.7 x 5.6 x 3.9 cm. The myometrium is homogeneous. The endometrium measures 8.4 mm combined thickness with trilaminar appearance. Ovaries: The right ovary measures 3.0 x 2.1 x 1.5 cm, with a calculated ovarian volume of 4.9 cc. The left ovary measures 3.2 x 2.4 x 1.8 cm, with a calculated ovarian volume of 6.9 cc. The ovaries have a normal sonographic appearance. At least 12 subcentimeter follicles are seen in the right ovary and at least 20 subcentimeter follicles in the left ovary. No follicle is seen that measures greater than 1 cm. Other: No pathologic free abdominal or pelvic fluid. Prominent bilateral adnexal veins again noted. IMPRESSION: At least 12 subcentimeter follicles in the right ovary and at least 20 subcentimeter follicles in the left ovary. No follicle measuring greater than 1 cm. Approved by: Neno Pyle M.D. on 10/21/2024 at 13:16
== END ==
PROVIDERS: PCP Physician Assistant; Referring Provider Obstetrics & Gynecology Reproductive Endocrinology; Visit Provider Obstetrics & Gynecology Reproductive Endocrinology
DX: Z31.49 Encounter for other procreative investigation and testing (principal); Z11.9 Encounter for screening for infectious and parasitic diseases, unspecified
CPT/HCPCS: 76830

== ENCOUNTER → 2024-11-17 06:54 | Outpatient (CLI) | payer BC, SELFPAY ==
--- NOTE | 2024-11-17 06:56 | DI.US.S_ITS ---
PROCEDURE: US OB <= 14 WEEKS FETUS INDICATIONS: Encounter for other procreative investigation and OUTSIDE/PRIOR DATING DATA: Last menstrual period (LMP): Not provided TECHNIQUE: Real-time scanning was performed of the fetus and maternal pelvic organs, with image documentation. Endovaginal scanning was also performed to better visualize the fetus and maternal ovaries. COMPARISON: None. FINDINGS: Mean gestational sac diameter is 5 weeks and 5 days. No pole is identified. Suspect yolk sac is seen at the fundus. Enlarged bilateral adnexal veins, with thrombi, occlusive on the right, and partially occlusive on the left. IMPRESSION: Intrauterine gestational sac is seen, without pole identified. of unknown viability: Recommend imaging and clinical follow-up in 14 days or sooner. Bilateral enlarged adnexal veins (likely ovarian vein branches) with bilateral thrombi occlusive on the right, partially occlusive on the left. There may be underlying pelvic congestion. Agree with preliminary report provided to Vivek by operations accountant. Dictated by: Edmund Balderas M.D. on 11/17/2024 at 8:18 Approved by: Edmund Balderas M.D. on 11/17/2024 at 8:22
== END ==
PROVIDERS: Referring Provider Obstetrics & Gynecology Reproductive Endocrinology; Visit Provider Obstetrics & Gynecology Reproductive Endocrinology
DX: Z00.00 Encounter for general adult medical examination without abnormal findings (principal); Z11.9 Encounter for screening for infectious and parasitic diseases, unspecified; Z31.49 Encounter for other procreative investigation and testing
CPT/HCPCS: 76801

== ENCOUNTER 2024-11-17 08:38 | Emergency (ER) | payer BC, SELFPAY ==
[2024-11-17] VITALS (8 sets, daily range): BP systolic 100–113; BP diastolic 55–74; PULSE 65–78; RESP 14–18; TEMP 37; O2SAT 96–99; BMI 28.1
--- NOTE | 2024-11-17 11:02 | ED_ITS ---
HPI - General Chief complaint: Urogenital-Female Stated complaint: Blood clot in pelvic area 5 weeks Time Seen by Provider: 11/17/24 11:00 Source: patient Mode of arrival: Ambulatory Limitations: no limitations History of Present Illness HPI Narrative: This is a 29-year-old female SAB 1 who had an embryo implanted 5 weeks ago [address] a Dr[address] Vj Doyle in [facility]. The patient had a scheduled ultrasound done today to confirm and there was an unexpected finding of adnexal vein thrombosis bilaterally with the occlusive thrombus on the right. Patient reports she is not having any abdominal pain or pelvic pain no nausea or vomiting and no bleeding. No history of abnormal clotting. Patient is on progesterone taking it orally and has to 0.1 mg patches on also taking folic acid vitamins and 81 mg aspirin. She was referred to the emergency department for follow up of these results. Ultrasound report from earlier today:[address] [address] Ultrasound Report Signed Patient: Isabela Vila MR#: [id number] : 1995 Acct:[id number] Age/Sex: 29 / F Date of Service: 11/17/24 Loc: US Accession Number: [id number] Procedure: US OB <= 14 weeks fetus Ordering Provider: Franco Traylor MD PROCEDURE: US OB <= 14 WEEKS FETUS INDICATIONS: Encounter for other procreative investigation and OUTSIDE/PRIOR DATING DATA: Last menstrual period (LMP): Not provided TECHNIQUE: Real-time scanning was performed of the fetus and maternal pelvic organs, with image documentation. Endovaginal scanning was also performed to better visualize the fetus and maternal ovaries. COMPARISON: None. FINDINGS: Mean gestational sac diameter is 5 weeks and 5 days. No pole is identified. Suspect yolk sac is seen at the fundus. Enlarged bilateral adnexal veins, with thrombi, occlusive on the right, and partially occlusive on the left. IMPRESSION: Intrauterine gestational sac is seen, without pole identified. of unknown viability: Recommend imaging and clinical follow-up in 14 days or sooner. Bilateral enlarged adnexal veins (likely ovarian vein branches) with bilateral thrombi occlusive on the right, partially occlusive on the left. There may be underlying pelvic congestion. Agree with preliminary report provided to Vivek by power saw operator. Dictated by: Edmund Balderas M.D. on 11/17/2024 at 8:18 Approved by: Edmund Balderas M.D. on 11/17/2024 at 8:22 Related Data Home Medications ?Medication ?Instructions ?Recorded ?Confirmed aspirin 81 mg tablet,delayed 81 mg PO DAILY 11/17/24 0 11/17/24 release estradiol 0.1 mg/24 hr semiweekly 1 patch transdermal 2XW 11/17/24 11/17/24 transdermal patch (Taay) estradiol 2 mg tablet 2 mg PO DAILY 11/17/2411/17 folic acid 1 mg tablet 1 mg PO DAILY 11/17/2411/17 progesterone 50 mg/mL 50 mg IM DAILY 11/17/2409/06 intramuscular oil Previous Rx's ?Medication ?Instructions ?Recorded vitamin 1 tab PO DAILY #90 tabs 01/14 10/05 no.76-iron,carbonyl 29 mg iron-folic acid 1 mg tablet (Prenatabs Rx) enoxaparin 100 mg/mL subcutaneous 90 mg (0.9 mL) SUBCU T Q12H #60 mL 11/17/24 syringe (Lovenox) Allergies Allergy/AdvReac Type Severity Reaction Status Date / Time No Known Drug Allergies Allergy Verified 11/17/24 08:58 Exam Initial Vital Signs Initial Vital Signs: Vital Signs Temperature 98.6 F 11/17/24 08:58 Pulse Rate 77 11/17/24 08:58 Respiratory Rate 18 11/17/24 08:58 Blood Pressure 110/65 11/17/24 08:58 Pulse Oximetry 98 11/17/24 08:58 Oxygen Delivery Method Room Air 11/17/24 08:58 vital signs are reviewed Const General: cooperative and No acute distress HENMT Head: normocephalic and atraumatic Face and sinus: face symmetric Mouth: moist mucous membranes Neck Neck: normal visual inspection and supple Chest Chest: normal inspection of the chest Resp Effort & Inspection: normal respiratory effort and able to speak in complete sentences Cardio Other: Normal heart rate GI Inspection: normal to inspection Palpation: soft Auscultation: normal bowel sounds Neuro General: patient alert, patient oriented x3 and moves all extremities Speech: speech normal Extrem General: full ROM Psych Appearance: grossly normal Course Orders Ordered: ED Orders 11/17/24 11:25 Consult to Obstetrics Stat Reevaluation(s) Reevaluation #1: Discussed recommendation for anticoagulation with Lovenox. Discussed the fact that this is an anticoagulant medication increasing her risk of bleeding. Patient does not have a history of intracranial aneurysm intracranial hemorrhage for GI bleeding. She will follow up with Gynecology. Consultations Consultation #1: Consult to Dr. Isabela Lacey's, gynecology will come see the patient. After seeing the patient, Dr. Schumacher recommends therapeutic Lovenox b.i.d.. I have sent this prescription. Patient will follow up with Dr. Ramsay. Vital Signs Vital signs: Vital Signs - 8 hr 11/17/24 08:58 11/17/24 09:20 11/17/24 09:21 Temperature 98.6 F Pulse Rate 77 78 78 Respiratory Rate 18 Blood Pressure 110/65 Pulse Oximetry 98 97 96 Oxygen Delivery Method Room Air 11/17/24 09:21 11/17/24 09:30 11/17/24 09:30 Temperature Pulse Rate 76 Respiratory Rate 14 Blood Pressure 102/55 L 100/61 Pulse Oximetry 98 Oxygen Delivery Method 11/17/24 10:00 11/17/24 10:00 11/17/24 10:27 Temperature Pulse Rate 68 69 Respiratory Rate 16 Blood Pressure 111/61 Pulse Oximetry 99 97 Oxygen Delivery Method 11/17/24 10:27 11/17/24 10:30 11/17/24 10:30 Temperature Pulse Rate 65 Respiratory Rate Blood Pressure 111/74 113/68 Pulse Oximetry 97 Oxygen Delivery Method 11/17/24 11:00 11/17/24 11:00 Temperature Pulse Rate 67 Respiratory Rate Blood Pressure 109/60 Pulse Oximetry 98 Oxygen Delivery Method MDM - OB/Uterine Contractions MDM Narrative Medical decision making narrative: 21-year-old female early in on fertility enhancing drugs which I expect to her increasing her tendency to clot, she presents today with an incidental finding of adnexal vein thrombosis on an outpatient ultrasound. Patient is asymptomatic and stable. Gynecology was consulted saw the patient and recommended that we start Lovenox. Discharge Plan Departure Patient Disposition: Home Clinical Impression: Acute deep vein thrombosis of pelvic vein Activity Restrictions/Additional Instructions: Today, we noted that you have a clot in veins associated with your ovaries. For this, we have started on anticoagulant medication, Lovenox. This medication needs to be given twice daily, and it increases the risk of bleeding. If you have severe headache head injury uncontrolled external bleeding black stool vomiting blood or vaginal bleeding more than a trace return to the emergency department. Follow up soon with gynecology. Continue previous medications, with the exception of aspirin which you should stop Prescriptions: New enoxaparin [Lovenox] 100 mg/mL syringe 90 mg SUBCUT Q12H Qty: 60 0RF No Action estradiol [Taya] 0.1 mg/24 hr patch semiweekly 1 patch transdermal 2XW aspirin 81 mg tablet,delayed release (DR/EC) 81 mg PO DAILY progesterone 50 mg/mL oil 50 mg IM DAILY estradiol 2 mg tablet 2 mg PO DAILY folic acid 1 mg tablet 1 mg PO DAILY Prenatabs Rx 29 mg iron- 1 mg Tablet 1 tab PO DAILY Qty: 90 1RF Referrals: Provider,Andres NATION [Primary Care Provider, Family Practice] Isabela Schumacher DO [Physician, HAND WRAPPER OPERATOR] Stand Alone Forms: Patient Portal/API
--- NOTE | 2024-11-17 11:23 | PC.NURSE ---
patient denies pain or vaginal bleeding, patient here because of US findings. states she is 5 weeks, 5 days.
--- NOTE | 2024-11-17 12:04 | PM.CN.IH.1 ---
History of Present Illness Consult details Date Patient Seen: 11/17/24 Time Patient Seen: 11:00 Chief complaint: Blood clot in pelvic area 5 weeks Reason for consult: with bilateral ovarian vein thromboses on US Requesting provider: Desmond Carrington Narrative: 29-year-old newly after embryo transfer for surrogacy, presented today to Radiology for viability ultrasound. Given the findings on ultrasound, she was then referred to the ER. She reports feeling well, having no abdominal pain or vaginal bleeding. Meds Home Medications and Allergies Home Medications ?Medication ?Instructions ?Recorded ?Confirmed ?Type vitamin 1 tab PO DAILY #90 tabs 02/07/23 11/17/24 Rx no.76-iron,carbonyl 29 mg iron-folic acid 1 mg tablet (Prenatabs Rx) aspirin 81 mg tablet,delayed 81 mg PO DAILY 11/17/24 11/17/24 History release enoxaparin 100 mg/mL subcutaneous 90 mg (0.9 mL) SUBCUT Q12H #60 mL 11/17/24 Rx syringe (Lovenox) estradiol 0.1 mg/24 hr semiweekly 1 patch transdermal 2XW 11/17/24 11/17/24 History transdermal patch (Taya) estradiol 2 mg tablet 2 mg PO DAILY 11/17/24 11/17/24 History folic acid 1 mg tablet 1 mg PO DAILY 11/17/24 11/17/24 History progesterone 50 mg/mL 50 mg IM DAILY 11/17/24 11/17/24 History intramuscular oil Allergies Allergy/AdvReac Type Severity Reaction Status Date / Time No Known Drug Allergies Allergy Verified 11/17/24 08:58 Review of Systems Review of Systems ROS: Yes All systems reviewed with the patient and are negative except as otherwise documented Exam Vital Signs (past 8 hours): - 11/17/24 08:58 11/17/24 09:20 11/17/24 09:21 Temperature 98.6 F Pulse Rate 77 78 78 Respiratory Rate 18 Blood Pressure 110/65 Pulse Oximetry 98 97 96 Oxygen Delivery Method Room Air 11/17/24 09:21 11/17/24 09:30 11/17/24 09:30 Temperature Pulse Rate 76 Respiratory Rate 14 Blood Pressure 102/55 L 100/61 Pulse Oximetry 98 Oxygen Delivery Method 11/17/24 10:00 11/17/24 10:00 11/17/24 10:27 Temperature Pulse Rate 68 69 Respiratory Rate 16 Blood Pressure 111/61 Pulse Oximetry 99 97 Oxygen Delivery Method 11/17/24 10:27 11/17/24 10:30 11/17/24 10:30 Temperature Pulse Rate 65 Respiratory Rate Blood Pressure 111/74 113/68 Pulse Oximetry 97 Oxygen Delivery Method 11/17/24 11:00 11/17/24 11:00 Temperature Pulse Rate 67 Respiratory Rate Blood Pressure 109/60 Pulse Oximetry 98 Oxygen Delivery Method Oxygen Delivery Method Room Air Const General: healthy appearing, comfortable and No acute distress Resp Effort & Inspection: normal respiratory effort and able to speak in complete sentences Skin General: no rashes or lesions noted Neuro Cognition: normal cognition Speech: speech normal Psych Mood: congruent mood Affect: normal affect Objective Imaging US - abdomen: Radiologist's impression: FINDINGS: Mean gestational sac diameter is 5 weeks and 5 days. No pole is identified. Suspect yolk sac is seen at the fundus. Enlarged bilateral adnexal veins, with thrombi, occlusive on the right, and partially occlusive on the left. IMPRESSION: Intrauterine gestational sac is seen, without pole identified. of unknown viability: Recommend imaging and clinical follow-up in 14 days or sooner. Bilateral enlarged adnexal veins (likely ovarian vein branches) with bilateral thrombi occlusive on the right, partially occlusive on the left. There may be underlying pelvic congestion. Agree with preliminary report provided to Vivek by non destructive testing specialist. Dictated by: Edmund Balderas M.D. on 11/17/2024 at 8:18 Approved by: Edmund Balderas M.D. on 11/17/2024 at 8:22 [facility] Medical History (Updated 11/17/24 @ 12:14 by Isabela Schumacher DO) History of miscarriage Anemia affecting in third trimester (~2016) Encounter for supervision of other normal , third trimester Shoulder dystocia during labor and delivery Surgical History (Updated 12/06/23 @ 13:58 by Isabela Schumacher DO) History of delivery (~01/2023) Hx laparoscopic cholecystectomy Family History (Updated 02/01/23 @ 14:51 by Luciana Hill) Mother Al's thyroiditis Grandmother Hypertension Grandfather Heart disease Stroke Grandfather Esophageal cancer Grandmother Liver failure Alcoholism Sister Seizure in pediatric patient Social History marital status: number of children: 3 household members: spouse and children lives independently: Yes caregiver/support person: Yes housing: house pets and animals: Yes (1 dog) education level: college occupational status: unemployed current occupational exposures/hazards: No special elayne needs: No travel history: recent Safety seatbelt use: always helmet use: No water heater temp set < 120 deg: Yes working smoke detector in home: Yes fire extinguisher in home: Yes carbon monox detector in home: Yes firearms in home: No do you feel safe at home: Yes Tobacco & Substance Use second hand exposure: No alcohol intake: former substance use type: does not use Diet and Exercise during the past year weight has: remained stable well-balanced diet: about half the time daily servings fruits/ve-4 caffeine: Yes (~1 cup coffee/day) Type(s) of exercise: walking Assessment & Plan Assessment and plan (1) Acute deep vein thrombosis of pelvic vein: Status: Acute (2) Thrombosis complicating , antepartum: Status: Acute Assessment & Plan narrative: 29yo about 5+5wks with surrogacy s/p embryo transfer, diagnosed today with incidentally found bilateral ovarian vein thromboses on ultrasound. -recommend patient start therapeutic lovenox (1mg/kg BID) -estrogen, progesterone, hCG levels done today per [facility] request -will arrange for close-interval outpatient follow-up Time-Based Coding :: [60min] spent with patient and on the chart (including review of chart, obtaining history, exam, reviewing outside data, placing orders, documenting exam and treatment plan, and counseling patient) on [11/17/24]. PROFEE Charge Codes Inpatient or Observation consultation: 45447
[2024-11-17 12:57] LABS: Progesterone, Total 25.20 ng/mL
[2024-11-17 13:03] LABS: HCG Quantitative /Beta subunit 7383.2 mIU/mL
[2024-11-17 13:13] LABS: Estradiol, Total 597.2 pg/mL
--- NOTE | 2024-11-17 17:38 | PC.NURSE ---
Pt called requesting pharmacy location change. Called RX to [facility]ang [facility], 90mg SQ injection unavailable. Per provider verbal order, changed RX to Lovenox 80mg SQ BID for 60 days.
== END 2024-11-17 12:24 | disposition home or self-care (01) ==
PROVIDERS: Student in an Organized Health Care Education/Training Program; Emergency Provider Emergency Medicine
DX: O22.31 Deep phlebothrombosis in pregnancy, first trimester (principal); I82.890 Acute embolism and thrombosis of other specified veins; Z3A.01 Less than 8 weeks gestation of pregnancy
CPT/HCPCS: 36415; 76801; 82670; 84144; 84702; 99281; 99283

== ENCOUNTER → 2024-12-21 15:10 | Outpatient (CLI) | payer BC, SELFPAY ==
--- NOTE | 2024-12-21 15:13 | DI.US.S_ITS ---
PROCEDURE: US OB <= 14 WEEKS FETUS INDICATIONS: IVF; F/U [place]MENT[place], LT ADNEXAL VEIN CLOT OUTSIDE/PRIOR DATING DATA: Last menstrual period (LMP): 10/27/2024 LMP-based estimated date of delivery (LYNDON): 07/20/2025 First dating scan (date and location): 11/24/2024 Estimated date of delivery (LYNDON) from first dating scan: 07/21/2025 TECHNIQUE: Real-time scanning was performed of the fetus and maternal pelvic organs, with image documentation. Endovaginal scanning was also performed to better visualize the fetus and maternal ovaries. COMPARISON: [facility], OB <= 14 WEEKS FETUS, 12/08/2024, 7:05. FINDINGS: Embryo: Single intrauterine gestational sac with fetus seen. [place]-rump length measures 2.22 cm. Estimated gestational age based on current study is 8 weeks, 6 days. Estimated gestational age based on initial study is 9 weeks, 5 days. Heart rate: No cardiac activity is detected. Maternal organs: Ovaries are visualized and are within normal limits. Previously described left pelvic venous nonocclusive thrombus is again seen now measures 4 x 1 x 5 mm in size. IMPRESSION: 1. Finding is consistent with intrauterine demise. Correlation with serial beta HCG level is recommended. 2. Stable appearing nonocclusive left pelvic venous thrombosis. We strive to produce accurate, complete, and clear reports of imaging services. To assist us in improving patient care, this report was composed using standard report templates and voice recognition software. Therefore, it may contain abnormal punctuation, insertions and/or omissions. Occasional wrong-word or sound-alike substitutions may occur. Though we review the report and make efforts to correct it, we do recommend that the report be read carefully in proper context to recognize any text inaccuracies. Dictated by: Miki Guaman M.D. on 12/21/2024 at 16:20 Approved by: Miki Guaman M.D. on 12/21/2024 at 16:23
== END ==
LOC: US 15:11
PROVIDERS: Referring Provider Obstetrics & Gynecology Reproductive Endocrinology; Visit Provider Obstetrics & Gynecology Reproductive Endocrinology
DX: O36.80X0 Pregnancy with inconclusive fetal viability, not applicable or unspecified (principal); I82.890 Acute embolism and thrombosis of other specified veins; Z31.49 Encounter for other procreative investigation and testing
CPT/HCPCS: 76801

== ENCOUNTER → 2024-12-25 14:56 | Outpatient (CLI) | payer BC, SELFPAY ==
--- NOTE | 2024-12-25 14:56 | DI.US.S_ITS ---
PROCEDURE: US OB <= 14 WEEKS FETUS INDICATIONS: ob OUTSIDE/PRIOR DATING DATA: Last menstrual period (LMP): 10/27/2024. IVF. LMP-based estimated date of delivery (LYNDON): 07/20/2025. First dating scan (date and location): 11/24/2024. Estimated date of delivery (LYNDON) from first dating scan: 07/21/2025. TECHNIQUE: Real-time scanning was performed of the fetus and maternal pelvic organs, with image documentation. Endovaginal scanning was also performed to better visualize the fetus and maternal ovaries. COMPARISON: [facility], OB <= 14 WEEKS FETUS, 12/21/2024, 15:29. FINDINGS: Embryo: [place]-rump length measuring 2 cm corresponding to a gestational age of 8 weeks 4 days. (Estimated gestational age by clinical dating 10 weeks 2 days). Heart rate: No cardiac motion detected. No color flow. Maternal organs: Ovaries are not identified. IMPRESSION: 1. [place] intrauterine measuring 2 cm. No cardiac motion. Ultrasound findings diagnostic of failure. 2. No perigestational hemorrhage. We strive to produce accurate, complete, and clear reports of imaging services. To assist us in improving patient care, this report was composed using standard report templates and voice recognition software. Therefore, it may contain abnormal punctuation, insertions and/or omissions. Occasional wrong-word or sound-alike substitutions may occur. Though we review the report and make efforts to correct it, we do recommend that the report be read carefully in proper context to recognize any text inaccuracies. Dictated by: Elijah Malagon M.D. on 12/25/2024 at 16:54 Approved by: Elijah Malagon M.D. on 12/25/2024 at 17:00
== END ==
PROVIDERS: Referring Provider Obstetrics & Gynecology Reproductive Endocrinology; Visit Provider Obstetrics & Gynecology Reproductive Endocrinology
DX: Z31.49 Encounter for other procreative investigation and testing (principal); O36.80X0 Pregnancy with inconclusive fetal viability, not applicable or unspecified
CPT/HCPCS: 76801; 76817

== ENCOUNTER 2025-01-01 10:27 | Day surgery (SDC) | payer BC, SELFPAY ==
[2024-12-30 14:13] VITALS: BMI 28.6
--- NOTE | 2025-01-01 | PATH_ITS ---
[facility] Accession Number: [id number] No. of containers..01 Tissue . 01 Material submitted: . product of conception - PRODUCTS OF CONCEPTION . 01 Diagnosis: PRODUCTS OF CONCEPTION: Products of conception present. Outside consultation pending to exclude a molar gestation; results will be reported as an addendum. MRV 01/08/2025 1722 Local . 01 Electronically signed: . Xena Ponce MD, Pathologist NPI- [id number] . 01 Gross description: . Received in formalin with two identifiers and products of conception, are multiple hernandez spongy to membranous soft tissue fragments admixed with mucohemorrhagic material aggregating to 7.2 x 5.9 x 1.5 cm. No tissue is definitively identified. Seo Coordinator sections are submitted in cassettes A1-A2. ([id number]) /NADIR 01/03/2025 2324 Local . 01 Pathologist provided ICD-10: O02.1 . 01 CPT . 522896 Specimen Comment: A courtesy copy of this report has been sent to [phone] Performed at: [address] [id number] MD Vj Cagle MD Phone: [phone]
[2025-01-01 10:54] VITALS: BP 107/66; PULSE 65; RESP 16; TEMP 36.6; O2SAT 98; BMI 28.6
[2025-01-01] MEDS: ACETAMINOPHEN IV 1,000 MG/100 ML VIAL 400 MG IV (11:05)
[2025-01-01] MEDS: FAMOTIDINE 20 MG/2 ML VIAL IV (11:05)
[2025-01-01] MEDS: LACTATED RINGERS 1,000 ML 42 ML IV (11:06)
--- NOTE | 2025-01-01 12:24 | PM.PREOP ---
Pre-operative Note COVID-19 COVID-19 status: Not tested Interval Note History & Physical reviewed/Exam performed by Physician: Yes Changes to H&P: No
--- NOTE | 2025-01-01 12:43 | SUR.OPER ---
Lithotomy on padded OR bed, head on pillow, arms secured on padded arm boards at <90 degrees abduction. Legs secured in padded yellow fins stirrups. Safety strap across abdomen. Position approved by Dr. Galvan.
--- NOTE | 2025-01-01 12:59 | P.OP_ITS ---
Operative Date/Time/Diagnoses Date of procedure: 01/01/25 Time of procedure: 12:30 Pre-op diagnosis: Missed Post-op diagnosis: same Procedure & Clinicians Procedure: Procedures Operation Date: 01/01/25 12:00 Actual Procedure Side Surgeon p Suction Curettage of the uterus Netsor Galvan MD Indications: 29-year-old at 10+ 4 weeks by IVF dating, presenting today from radiology after having an ultrasound done that confirmed demise today. The fetus is measuring 8+ 6 weeks with no heart rate. She reports physically feeling well, denies any abdominal pain or vaginal bleeding. Is continuing on Lovenox due to incidental diagnosis of bilateral ovarian vein thromboses. Pelvic US shows: FINDINGS: Embryo: Single intrauterine gestational sac with fetus seen. [place]-rump length measures 2.22 cm. Estimated gestational age based on current study is 8 weeks, 6 days. Estimated gestational age based on initial study is 9 weeks, 5 days. Heart rate: No cardiac activity is detected. Maternal organs: Ovaries are visualized and are within normal limits. Previously described left pelvic venous nonocclusive thrombus is again seen now measures 4 x 1 x 5 mm in size. IMPRESSION: 1. Finding is consistent with intrauterine demise. Correlation with se rial beta HCG level is recommended. 2. Stable appearing nonocclusive left pelvic venous thrombosis. After counseling regarding options for management of the missed , she presents today for suction curettage. Blood type is Rh positive. Surgeon: Nestor Galvan Anesthesia Type: General Operative Notes Findings: Significant amounts of necrotic products of conception are removed from the cavity of the uterus. Pre evacuation, the uterus is 8-10 weeks in size, post evacuation uterus is 6-8 weeks in size and firm Closure Type: not applicable Specimen(s): products of conception Applied: none Estimated blood loss (mL): 25 Blood products transfused: none Procedure in detail: With the patient under satisfactory general endotracheal anesthesia in the modified dorsal lithotomy position, the pelvis, perineum, and lower abdomen were prepped and draped in the usual fashion for D&C. A pre-surgical safety time-out was then taken in accordance with [facility] OR protocols. A bivalve speculum was inserted in the vagina and the cervix visualized. The anterior lip of the cervix was grasped with a ring forcep and the endocervical canal was sequentially dilated to 9 mm. A 9 mm curved suction curette was then introduced into the endometrial cavity and suction applied. Several passes with the suction curette were required for complete evacuation of the uterus and prior to initiating the curettage itself, the patient received 10 units of Pitocin IM. Once complete evacuation of the uterine cavity was assured, the ring forcep was removed from the anterior lip of the cervix. At that point the speculum was removed from the vagina and the procedure terminated. The patient was then awakened from anesthesia and transferred to the PACU for a period of observation and recovery having tolerated the procedure well. Complications: none Post-operative Condition: stable Disposition: PACU Plan for aftercare: Routine post-op care and follow-up in 2 weeks or as needed.
[2025-01-01 13:00] VITALS: BP 109/55; PULSE 57; RESP 16; TEMP 36.4; O2SAT 97
[2025-01-01 13:05] VITALS: BP 114/56; PULSE 49; RESP 16; O2SAT 98
[2025-01-01 13:10] VITALS: BP 112/53; PULSE 62; RESP 16; TEMP 36.2; O2SAT 95
[2025-01-01 13:15] VITALS: BP 98/55; PULSE 60; RESP 16; TEMP 36.2; O2SAT 99
[2025-01-01 13:39] VITALS: BP 112/65; PULSE 64; RESP 16; TEMP 36.2; O2SAT 98
== END 2025-01-01 13:30 | disposition home or self-care (01) ==
PROVIDERS: PCP Obstetrics & Gynecology; Referring Provider Obstetrics & Gynecology; Visit Provider Obstetrics & Gynecology
PROC: (CPT 58120; principal; 2025-01-01 12:00)
DX: O02.1 Missed abortion (principal); Z3A.10 10 weeks gestation of pregnancy
CPT/HCPCS: 59812; J0131; J1100; J2250; J2405; J2590; J2704; J3010